=== PATIENT | female | born 1965 ===

== ENCOUNTER 2018-05-01 13:33 | Emergency (ER) | payer BC, OTHER ==
[2018-05-01 13:35] VITALS: BMI 25.4
[2018-05-01 13:36] VITALS: BP 120/68; PULSE 63; RESP 17; TEMP 97.9; O2SAT 99
[2018-05-01] MEDS ORDERED: Naproxen 500 MG TAB PO STA (13:51)
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
[2018-05-01] MEDS ORDERED: Naproxen 500 MG TAB PO ONE (14:17)
--- NOTE | 2018-05-01 15:56 | RAD ---
PROCEDURE: Cervical Spine Radiographs. HISTORY: Pain. COMPARISON: None. FINDINGS: BONES: Straightening of the normal lordosis. No fracture. Dens Intact. DISC SPACES: Normal. SOFT TISSUES: Normal. No prevertebral soft tissue swelling. OTHER FINDINGS: None. IMPRESSION: Straightening of the normal lordosis may be related to positioning/ spasm. No evidence of acute fracture.
--- NOTE | 2018-05-01 15:57 | RAD ---
PROCEDURE: Radiographs of the Lumbar Spine. HISTORY: trauma COMPARISON: No prior. FINDINGS: BONES: Normal alignment. No listhesis. No fracture. DISC SPACES: Mild multilevel disc space narrowing. OTHER FINDINGS: None. IMPRESSION: No acute fracture. Mild multilevel disc space narrowing.
--- NOTE | 2018-05-01 15:58 | RAD ---
PROCEDURE: CHEST RADIOGRAPH, 1 VIEW HISTORY: trauma COMPARISON: None available. FINDINGS: LUNGS: Clear. PLEURA: No pneumothorax or pleural fluid seen. CARDIOVASCULAR: Normal. OSSEOUS STRUCTURES: No significant abnormalities. VISUALIZED UPPER ABDOMEN: Normal. OTHER FINDINGS: None. IMPRESSION: No active disease.
--- NOTE | 2018-05-01 15:58 | RAD ---
PROCEDURE: Radiographs of the pelvis. HISTORY: trauma COMPARISON: None. FINDINGS: BONES: Pelvic Bones: Unremarkable. Hips: Grossly unremarkable. JOINTS: Sacroiliac Joints: Unremarkable. Pubic Symphysis: Unremarkable. OTHER FINDINGS: None. IMPRESSION: Unremarkable radiographs of the pelvis.
== END 2018-05-01 15:06 | disposition home or self-care (01) ==
LOC: H.ER 13:33
DX: M54.9 Dorsalgia, unspecified (principal); M25.551 Pain in right hip; M25.552 Pain in left hip; S20.219A Contusion of unspecified front wall of thorax, initial encounter; V43.62XA Car passenger injured in collision with other type car in traffic accident, initial encounter; Y92.410 Unspecified street and highway as the place of occurrence of the external cause

== ENCOUNTER 2018-10-31 11:08 | Emergency (ER) | payer OTHER, BC ==
[2018-10-31 11:09] VITALS: BMI 25.4
[2018-10-31 11:33] VITALS: O2SAT 98
[2018-10-31 12:03] VITALS: RESP 19
[2018-10-31] MEDS ORDERED: Morphine 4 MG/ML VIAL IV STA (12:44)
[2018-10-31] MEDS ORDERED: Morphine 4 MG/ML VIAL ONE (13:06)
--- NOTE | 2018-10-31 13:11 | ED PDOC ---
HPI: Trauma/Fall - HPI Time Seen by Provider: 10/31/18 12:26 Chief Complaint (Nursing): Dizziness/Lightheaded Chief Complaint (Provider): Dizziness/Lightheaded History Per: Patient, Family (daughter) History/Exam Limitations: no limitations Injury Occurred (Timing): Just Before Arrival Location Of Injury: Posterior: Back, Head Associated Symptoms: LOC, Memory Impairment Additional Complaint(s): 52 year old female with no medical history presents to the ED for evaluation after a fall just prior to arrival. Patient reports she had an accident while trying to clean something at her job and fell backwards off of 3-4 steps. She admits to hitting her head, although does not remember much else. Patient also lost consciousness and reports a headache, neck pain and back pain. She is able to identify the year as well as her location. Daughter is at bedside. PMD: none provided Past Medical History Reviewed: Historical Data, Nursing Documentation, Vital Signs Vital Signs: Last Vital Signs Temp 97.9 F 10/31/18 12:00 Pulse 59 L 10/31/18 12:00 Resp 19 10/31/18 12:00 BP 122/60 10/31/18 12:00 Pulse Ox 98 10/31/18 12:00 - Medical History PMH: No Chronic Diseases - Surgical History Surgical History: No Surg Hx - Family History Family History: States: Unknown Family Hx - Home Medications Home Medications: Ambulatory Orders Medication Instructions Recorded Naproxen 375 mg PO Q8 PRN #21 tab 02/20/15 diaZEpam [Valium] 5 mg PO Q6 PRN #10 tab 02/20/15 DiphenhydrAMINE [Benadryl] 25 mg PO ASDIR #1 packet 10/16/16 predniSONE [Prednisone] 20 mg PO BID #10 tab 10/16/16 Naproxen [Naprosyn] 500 mg PO Q12H #20 tab 05/01/18 Acetaminophen with Codeine 1 tab PO Q6H PRN #10 tab 10/31/18 [Tylenol with Codeine No. 3 300 mg-30 mg] Naproxen [Naprosyn] 500 mg PO BID PRN #15 tablet 10/31/18 - Allergies Allergies/Adverse Reactions: Allergies Allergy/AdvReac Type Severity Reaction Status Date / Time No Known Allergies Allergy Verified 10/31/18 11:29 Review of Systems ROS Statement: Except As Marked, All Systems Reviewed And Found Negative Constitutional: Positive for: Other (+ LOC ) Musculoskeletal: Positive for: Neck Pain, Back Pain Neurological: Positive for: Headache Physical Exam - Reviewed Nursing Documentation Reviewed: Yes Vital Signs Reviewed: Yes - Physical Exam Appears: Positive for: No Acute Distress Head Exam: Positive for: ATRAUMATIC, NORMAL INSPECTION, NORMOCEPHALIC Skin: Positive for: Normal Color, Warm, Dry Eye Exam: Positive for: Normal appearance, EOMI, PERRL Neck: Positive for: Pain On Movement Of Neck ((+) c spine tenderness) Cardiovascular/Chest: Positive for: Regular Rate, Rhythm. Negative for: Murmur Respiratory: Positive for: Normal Breath Sounds. Negative for: Wheezing, Respiratory Distress Gastrointestinal/Abdominal: Positive for: Normal Exam, Soft. Negative for: Tenderness Back: Positive for: L CVA Tenderness, R CVA Tenderness, Vertebral Tenderness (T spine and L Spine) Extremity: Positive for: Normal ROM (x 4). Negative for: Deformity, Other (straight leg test) Neurologic/Psych: Positive for: Alert, cosmetic chemist II-XII (grossly intact), Oriented (x 3). Negative for: Motor/Sensory Deficits - ECG O2 Sat by Pulse Oximetry: 98 (RA) Pulse Ox Interpretation: Normal - Radiology X-Ray: Read By Radiologist X-Ray Interpretation: No Acute Disease Medical Decision Making Medical Decision Makin:43 Impression: head injury Initial Plan: --CT Head --CT C Spine --CT Lumbar spine --CT Lumbar --Morphine 2 mg IVP --CXR --Pelvis x -ray Pelvis x-ray FINDINGS: BONES: Pelvic Bones: Unremarkable. Hips: Grossly unremarkable. JOINTS: Sacroiliac Joints: Unremarkable. Pubic Symphysis: Unremarkable. OTHER FINDINGS: None. IMPRESSION: Unremarkable radiographs of the pelvis. No significant interval change compared to the prior examination(s). 15:01 CT Lumbar FINDINGS: VERTEBRAE: There is normal alignment of the lumbar vertebral bodies. There is normal lumbar lordosis. There is no acute fracture, spondylolysis or spondylolisthesis. There is diffuse bone demineralization. DISC SPACES: There is reduced disc height at L5-S1. The remaining disc heights are maintained. There are multilevel Schmorl's nodes. DISCS/SPINAL CANAL/NEURAL FORAMINA: L1-2: No large disc herniation, neural foraminal or spinal canal stenosis. L2-3: No large disc herniation, neural foraminal or spinal canal stenosis. L3-4: Mild posterior disc bulge without central spinal canal stenosis. Mild bilateral facet arthropathy contribute to mild neural foraminal narrowing.. L4-5: Diffuse posterior disc bulge indents the ventral thecal sac with mild spinal canal stenosis. Mild bilateral facet arthropathy contribute to moderate neural foraminal narrowing.. L5-S1: Diffuse posterior disc bulge indents the ventral thecal sac without central spinal canal stenosis. Moderate bilateral facet arthropathy contribute to moderate right and moderate to severe left neural foraminal narrowing. PARASPINAL SOFT TISSUES: Unremarkable. OTHER FINDINGS: None. IMPRESSION: No acute fracture, spondylolysis or spondylolisthesis. Additional comments as described above. 15:53 CT C Spine FINDINGS: VERTEBRAE: There is normal alignment of the cervical vertebral bodies. There is straightening of the cervical spine with loss of normal cervical lordosis. Vertebral height is normal. Bone mineralization is normal. There is no acute fracture or traumatic anterior listhesis. There is a small so node at the superior endplate of C7 vertebral body. The craniocervical junction is normal. The atlantoaxial joint normal. DISCS/SPINAL CANAL/NEURAL FORAMINA: Evaluation of the discs and spinal canal is limited on noncontrast CT examination. Allowing for this, there is mild multilevel degenerative disc disease due to combination of disc osteophyte complexes, uncovertebral joint hypertrophy and multilevel facet arthropathy, worse at C6-7 with right foraminal, paracentral and posterolateral disc protrusion with moderate right neural foraminal narrowing without central spinal canal stenosis. PARASPINAL SOFT TISSUES: The paraspinous soft tissues are normal. No prevertebral soft tissue thickening. OTHER FINDINGS: There is a multinodular thyroid gland. IMPRESSION: No acute fracture or traumatic anterior listhesis. Straightening of the cervical spine may be positional or related to muscle spasm. Mild multilevel degenerative disc disease, worse at C6-7 with right foraminal, posterolateral and paracentral disc protrusions and moderate right neural foraminal narrowing without central spinal canal stenosis. 15:45 CT Head FINDINGS: HEMORRHAGE: No intracranial hemorrhage. BRAIN: Romero-white matter differentiation is preserved. There is no mass, mass effect or abnormal extra-axial fluid collection. There is no territorial infarction. The midline sagittal structures are normal. VENTRICLES: The ventricles are normal in size, shape and configuration. CALVARIUM: There is no calvarial fracture or extracranial soft tissue swelling. PARANASAL SINUSES: Predominantly clear. MASTOID AIR CELLS: Predominantly clear. OTHER FINDINGS: None. IMPRESSION: No acute intracranial abnormality. 1559 CT Thoracic Spine FINDINGS: VERTEBRAE: There is normal alignment of the thoracic vertebral bodies. There is normal thoracic kyphosis. There is diffuse bone demineralization. There is no acute fracture. DISCS/SPINAL CANAL/NEURAL FORAMINA: Within the limits of the CT technique, no large disc herniation seen. No central canal or neural foraminal stenosis.. Small multilevel Schmorl's nodes. PARASPINAL SOFT TISSUES: The paraspinous soft tissues are normal. OTHER FINDINGS: Unremarkable. IMPRESSION: No acute findings. No acute fracture. Scribe Attestation: Documented by Ana Castillo acting as a scribe for Zahra Collins MD Provider Scribe Attestation: All medical record entries made by the Scribe were at my direction and personally dictated by me. I have reviewed the chart and agree that the record accurately reflects my personal performance of the history, physical exam, medical decision making, and the department course for this patient. I have also personally directed, reviewed, and agree with the discharge instructions and disposition. Disposition - Clinical Impression Clinical Impression: Head injury with loss of consciousness, Musculoskeletal pain, Fall from ladder - Disposition Disposition: Routine/Home Disposition Time: 16:44 Condition: STABLE Additional Instructions: FOLLOW-UP WITH WORKMAN'S COMPENSATION. Prescriptions: Acetaminophen with Codeine [Tylenol with Codeine No. 3 300 mg-30 mg] 1 tab PO Q6H PRN #10 tab PRN Reason: Pain, Severe (8-10) Naproxen [Naprosyn] 500 mg PO BID PRN #15 tablet PRN Reason: Pain, Moderate (4-7) Instructions: Concussion in Adults, Closed Head Injury, Muscle and Bone Pain (DC) Forms: [facility] (Tristanian) Print Language: DIVEHI
--- NOTE | 2018-10-31 14:42 | RAD ---
Date of service: 10/31/2018 PROCEDURE: Radiographs of the pelvis. HISTORY: Fall COMPARISON: 05/01/2018 FINDINGS: BONES: Pelvic Bones: Unremarkable. Hips: Grossly unremarkable. JOINTS: Sacroiliac Joints: Unremarkable. Pubic Symphysis: Unremarkable. OTHER FINDINGS: None. IMPRESSION: Unremarkable radiographs of the pelvis. No significant interval change compared to the prior examination(s).
--- NOTE | 2018-10-31 14:43 | RAD ---
Date of service: 10/31/2018 PROCEDURE: CHEST RADIOGRAPH, 1 VIEW HISTORY: Fall COMPARISON: 05/01/2018. FINDINGS: LUNGS: Clear. PLEURA: No pneumothorax or pleural fluid seen. CARDIOVASCULAR: No aortic atherosclerotic calcification present. Normal. OSSEOUS STRUCTURES: No significant abnormalities. VISUALIZED UPPER ABDOMEN: Normal. OTHER FINDINGS: None. IMPRESSION: No active disease.No significant interval change compared to the prior examination(s).
--- NOTE | 2018-10-31 15:49 | CT ---
Date of service: 10/31/2018 PROCEDURE: CT HEAD WITHOUT CONTRAST. HISTORY: Head injury, LOC COMPARISON: None available. TECHNIQUE: Axial computed tomography images were obtained through the head/brain without intravenous contrast. Radiation dose: Total exam DLP = 0.0 mGy-cm. This CT exam was performed using one or more of the following dose reduction techniques: Automated exposure control, adjustment of the mA and/or kV according to patient size, and/or use of iterative reconstruction technique. FINDINGS: HEMORRHAGE: No intracranial hemorrhage. BRAIN: Romero-white matter differentiation is preserved. There is no mass, mass effect or abnormal extra-axial fluid collection. There is no territorial infarction. The midline sagittal structures are normal. VENTRICLES: The ventricles are normal in size, shape and configuration. CALVARIUM: There is no calvarial fracture or extracranial soft tissue swelling. PARANASAL SINUSES: Predominantly clear. MASTOID AIR CELLS: Predominantly clear. OTHER FINDINGS: None. IMPRESSION: No acute intracranial abnormality.
--- NOTE | 2018-10-31 15:57 | CT ---
Date of service: 10/31/2018 PROCEDURE: CT Cervical Spine without contrast HISTORY: Fall off ladder COMPARISON: None available. TECHNIQUE: Axial computed tomography images were obtained of the cervical spine without the use of intravenous contrast. Coronal and sagittal reformatted images were created and reviewed. Radiation dose: Total exam DLP = 3308.14 mGy-cm. This CT exam was performed using one or more of the following dose reduction techniques: Automated exposure control, adjustment of the mA and/or kV according to patient size, and/or use of iterative reconstruction technique. FINDINGS: VERTEBRAE: There is normal alignment of the cervical vertebral bodies. There is straightening of the cervical spine with loss of normal cervical lordosis. Vertebral height is normal. Bone mineralization is normal. There is no acute fracture or traumatic anterior listhesis. There is a small so node at the superior endplate of C7 vertebral body. The craniocervical junction is normal. The atlantoaxial joint normal. DISCS/SPINAL CANAL/NEURAL FORAMINA: Evaluation of the discs and spinal canal is limited on noncontrast CT examination. Allowing for this, there is mild multilevel degenerative disc disease due to combination of disc osteophyte complexes, uncovertebral joint hypertrophy and multilevel facet arthropathy, worse at C6-7 with right foraminal, paracentral and posterolateral disc protrusion with moderate right neural foraminal narrowing without central spinal canal stenosis. PARASPINAL SOFT TISSUES: The paraspinous soft tissues are normal. No prevertebral soft tissue thickening. OTHER FINDINGS: There is a multinodular thyroid gland. IMPRESSION: No acute fracture or traumatic anterior listhesis. Straightening of the cervical spine may be positional or related to muscle spasm. Mild multilevel degenerative disc disease, worse at C6-7 with right foraminal, posterolateral and paracentral disc protrusions and moderate right neural foraminal narrowing without central spinal canal stenosis.
--- NOTE | 2018-10-31 16:02 | CT ---
Date of service: 10/31/2018 PROCEDURE: CT Thoracic Spine without contrast HISTORY: Fall off ladder COMPARISON: None available. TECHNIQUE: Axial computed tomography images were obtained of the thoracic spine without intravenous contrast. Coronal and sagittal reformatted images were created and reviewed. Radiation dose: Total exam DLP = 0.0 mGy-cm. This CT exam was performed using one or more of the following dose reduction techniques: Automated exposure control, adjustment of the mA and/or kV according to patient size, and/or use of iterative reconstruction technique. FINDINGS: VERTEBRAE: There is normal alignment of the thoracic vertebral bodies. There is normal thoracic kyphosis. There is diffuse bone demineralization. There is no acute fracture. DISCS/SPINAL CANAL/NEURAL FORAMINA: Within the limits of the CT technique, no large disc herniation seen. No central canal or neural foraminal stenosis.. Small multilevel Schmorl's nodes. PARASPINAL SOFT TISSUES: The paraspinous soft tissues are normal. OTHER FINDINGS: Unremarkable. IMPRESSION: No acute findings. No acute fracture.
--- NOTE | 2018-10-31 16:18 | CT ---
Date of service: 10/31/2018 PROCEDURE: CT Lumbar Spine without contrast HISTORY: Fall off ladder COMPARISON: None available. TECHNIQUE: Axial computed tomography images were obtained of the lumbar spine without the use of intravenous contrast. Coronal and sagittal reformatted images were created and reviewed. Radiation dose: Total exam DLP = 3308.15 mGy-cm. This CT exam was performed using one or more of the following dose reduction techniques: Automated exposure control, adjustment of the mA and/or kV according to patient size, and/or use of iterative reconstruction technique. FINDINGS: VERTEBRAE: There is normal alignment of the lumbar vertebral bodies. There is normal lumbar lordosis. There is no acute fracture, spondylolysis or spondylolisthesis. There is diffuse bone demineralization. DISC SPACES: There is reduced disc height at L5-S1. The remaining disc heights are maintained. There are multilevel Schmorl's nodes. DISCS/SPINAL CANAL/NEURAL FORAMINA: L1-2: No large disc herniation, neural foraminal or spinal canal stenosis. L2-3: No large disc herniation, neural foraminal or spinal canal stenosis. L3-4: Mild posterior disc bulge without central spinal canal stenosis. Mild bilateral facet arthropathy contribute to mild neural foraminal narrowing.. L4-5: Diffuse posterior disc bulge indents the ventral thecal sac with mild spinal canal stenosis. Mild bilateral facet arthropathy contribute to moderate neural foraminal narrowing.. L5-S1: Diffuse posterior disc bulge indents the ventral thecal sac without central spinal canal stenosis. Moderate bilateral facet arthropathy contribute to moderate right and moderate to severe left neural foraminal narrowing. PARASPINAL SOFT TISSUES: Unremarkable. OTHER FINDINGS: None. IMPRESSION: No acute fracture, spondylolysis or spondylolisthesis. Additional comments as described above.
[2018-10-31 17:05] VITALS: BP 128/78; PULSE 78; TEMP 97.6
== END 2018-10-31 17:05 | disposition home or self-care (01) ==
LOC: H.ER 11:08
DX: S06.9X9A Unspecified intracranial injury with loss of consciousness of unspecified duration, initial encounter (principal); W11.XXXA Fall on and from ladder, initial encounter; M79.18 Myalgia, other site
CPT/HCPCS: 70450; 71045; 72125; 72128; 72131; 72170; 81025; 99285; J2270